=== PATIENT | female | born 1960 | race Caucasian/White ===

== ENCOUNTER 2023-11-30 17:09 | Emergency (ER) | payer MEDICARE ==
[~2023-11-30] VITALS: Ht 170.2 cm; Wt 88.6 kg
[2023-11-30 17:16] VITALS: TEMP 98.2
[2023-11-30] MEDS ORDERED: ALEN70TA65 PO (17:23)
[2023-11-30] MEDS ORDERED: OXYB-34 PO (17:23)
[2023-11-30] MEDS ORDERED: TOPI25 PO (17:23)
[2023-11-30] MEDS ORDERED: LEVO50 PO (17:23)
[2023-11-30] MEDS ORDERED: BUSP10TA23 PO (17:23)
[2023-11-30] MEDS ORDERED: ROSU20TA73 PO (17:23)
[2023-11-30] MEDS ORDERED: VENL50TA44 PO (17:23)
[2023-11-30] MEDS ORDERED: PROP40TA7 PO (17:23)
[2023-11-30] MEDS ORDERED: SULI150T PO (17:23)
[2023-11-30] MEDS ORDERED: IBUPROFEN 100 MG/5 ML SUSPENSION UDCUP PO ONE (17:45)
[2023-11-30] MEDS ORDERED: HYDROCODONE/ACETAMINOPHEN 5-325 MG TABLET PO ONE (18:00)
[2023-11-30 20:00] VITALS: BP 119/71; PULSE 65; RESP 18
[2023-11-30] MEDS ORDERED: IBUP-1493 PO (21:01)
== END 2023-11-30 22:15 | disposition home or self-care (01) ==
LOC: EMS 17:19
DX: S63.296A Dislocation of distal interphalangeal joint of right little finger, initial encounter (principal); F41.9 Anxiety disorder, unspecified; E78.00 Pure hypercholesterolemia, unspecified; E03.9 Hypothyroidism, unspecified; Z98.890 Other specified postprocedural states; W18.49XA Other slipping, tripping and stumbling without falling, initial encounter; Y93.89 Activity, other specified; Y92.098 Other place in other non-institutional residence as the place of occurrence of the external cause; Y99.8 Other external cause status
CPT/HCPCS: 26770; 99284; 73140-TC; Z7502; Z7610